=== PATIENT | male | born 2000 | race African-American/Black ===

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

== ENCOUNTER 2022-08-06 11:22 | Emergency (ER) | payer OTHER ==
[2022-08-06 14:29] LABS: SARS-CoV-2 NAA Rapid Test Not Detected (NotDetected)
== END 2022-08-06 14:50 | disposition home or self-care (01) ==
LOC: ERS 11:22
DX: J10.1 Influenza due to other identified influenza virus with other respiratory manifestations (principal); Z20.822 Contact with and (suspected) exposure to COVID-19
CPT/HCPCS: 99283